=== PATIENT | female | born 1970 | race Two or more races ===

== ENCOUNTER → 2024-08-14 | Outpatient (CLI) | payer MEDICAID, SELFPAY ==
--- NOTE | 2024-08-14 12:00 | XR_ITS ---
Examination: Breast ultrasound, unilateral, left complete Date and time of exam: August 14, 2024 1220 hours INDICATIONS: Left breast sonogram September 23, 2022 3:00 nodule 6 mm Technique: Real-time gilbert scale ultrasonographic imaging performed left breast including all 4 quadrants as well as nipple retroareolar and axillary region. Findings: 3:00 cyst 9 x 6 mm 3:00 circumscribed nodule 6 x 7 mm IMPRESSION: BI-RADS Category 2: Benign findings
== END | disposition home or self-care (01) ==
PROVIDERS: PCP Physician Assistant; Referring Provider Physician Assistant; Visit Provider Physician Assistant
DX: R92.8 Other abnormal and inconclusive findings on diagnostic imaging of breast (principal); N60.02 Solitary cyst of left breast
CPT/HCPCS: 76641

== ENCOUNTER → 2024-08-16 | Outpatient (CLI) | payer MEDICAID, SELFPAY ==
--- NOTE | 2024-08-16 09:34 | XR_ITS ---
Examination: Diagnostic digital mammography, bilateral Computer aided detection 3-D breast Tomosynthesis, bilateral Date and time of exam: August 16, 2024 0938 hours INDICATIONS: Mammogram February 25, 2023 asymmetry outer left breast 6.7 cm from the nipple Technique: Nonmagnified MLO, CC views of the breasts to been obtained, reconstructed from 3-D Tomosynthesis images. R2 computer aided detection program utilized for evaluation of suspicious masses and/or abnormal calcifications. 3-D Tomosynthesis images obtained. Findings: The breasts are heterogeneously dense, which may obscure small masses 10 mm oval mass partially indistinct margins inner upper left breast Impression: BI-RADS Category 0: Incomplete: Need additional imaging evaluation 10 mm oval mass partially indistinct margins inner upper left breast, recommend follow-up spot tomographic views of this mass.
== END | disposition home or self-care (01) ==
PROVIDERS: Referring Provider Physician Assistant Medical; Visit Provider Physician Assistant Medical
DX: R92.8 Other abnormal and inconclusive findings on diagnostic imaging of breast (principal); N63.22 Unspecified lump in the left breast, upper inner quadrant
CPT/HCPCS: 77062; 77066; G0279

== ENCOUNTER → 2024-09-19 | Outpatient (CLI) | payer BC, MEDICAID, SELFPAY ==
--- NOTE | 2024-09-19 15:30 | XR_ITS ---
Examination: Diagnostic digital mammography, unilateral, left Computer aided detection 3-D breast Tomosynthesis, unilateral Date and time of exam: 09/19/2024, 3:51 PM Comparisons: February 2012 through August 16, 2024 Indications: Further evaluation of mass seen on recent screening exam. Technique: Nonmagnified MLO, CC views of the left breast have been obtained, reconstructed from 3-D Tomosynthesis images. R2 computer aided detection program utilized for evaluation of suspicious masses and/or abnormal calcifications. 3-D Tomosynthesis images obtained. Technologist: Findings: The breasts are heterogeneously dense, which may obscure small masses. No evidence of abnormal masses or suspicious calcifications. The previously described abnormality does not persist on spot compression views and represents superimposition of normal fibroglandular tissue. Impression: BI-RADS category 1: Negative findings (within normal) Recommend 1 year follow-up mammogram
== END | disposition home or self-care (01) ==
PROVIDERS: PCP Physician Assistant; Referring Provider Physician Assistant; Visit Provider Physician Assistant
DX: R92.312 Mammographic fatty tissue density, left breast (principal)
CPT/HCPCS: 77061; 77065; G0279

== ENCOUNTER → 2025-01-29 | Outpatient (CLI) | payer BC, MEDICAID, SELFPAY ==
--- NOTE | 2025-01-29 | XR_ITS ---
Examination: Abdomen sonogram, complete Date and time of exam: January 29, 2025 1209 hours INDICATIONS: Left lower abdominal pain beginning 2 months ago. Technique: Multiple real-time grayscale transabdominal sonographic images of the abdomen have been obtained. Findings: Normal gallbladder Normal common bile duct 0.3 cm Pancreatic head 2.4 cm Aorta not enlarged. Liver 16.3 cm fatty infiltration Normal hepatopedal portal venous flow Patent IVC Right kidney 11.9 cm cortex 1.3 cm Left kidney 11.1 cm renal cortex 1.8 cm Mild bilateral renal pedicle scar formation Spleen 9.1 cm IMPRESSION: Normal gallbladder Normal common bile duct Mild hepatomegaly
--- NOTE | 2025-01-29 | XR_ITS ---
Examination: Hand, left 3 views Technique: Hand AP, oblique, lateral 3 views Date and time of exam: January 29, 2025 1157 hours INDICATIONS: Left hand pain beginning 2 years ago FINDINGS: Prominent osteopenia Diffuse mild to moderate narrowing joints of the wrist and hand No erosive arthritis Significant osteoarthritis distal interphalangeal joints second through fifth digits and first carpometacarpal joint No fractures IMPRESSION: Arthritic change as above
== END | disposition home or self-care (01) ==
PROVIDERS: PCP Nurse Practitioner Family; Referring Provider Nurse Practitioner Family; Visit Provider Nurse Practitioner Family
DX: M13.842 Other specified arthritis, left hand (principal); R16.0 Hepatomegaly, not elsewhere classified
CPT/HCPCS: 73130; 76700

== ENCOUNTER → 2025-02-07 | Outpatient (CLI) | payer BC, MEDICAID, SELFPAY ==
--- NOTE | 2025-02-07 14:24 | XR_ITS ---
Examination: Lumbar spine 3 views TECHNIQUE: AP lateral coned lateral lower lumbar spine 3 views Date and time: February 07, 2025 1438 hours INDICATIONS: Left leg pain and back pain 3 months. FINDINGS: Satisfactory alignment lumbar vertebral bodies Number position of the first sacral segment No lumbar fracture Mild lumbar spondylosis Mild to moderate degenerative disc disease L5-S1 IMPRESSION: Mild to moderate degenerative disc disease L5-S1
== END | disposition home or self-care (01) ==
PROVIDERS: PCP Nurse Practitioner Family; Referring Provider Nurse Practitioner Family; Visit Provider Nurse Practitioner Family
DX: M51.379 Other intervertebral disc degeneration, lumbosacral region without mention of lumbar back pain or lower extremity pain (principal)
CPT/HCPCS: 72100

== ENCOUNTER → 2025-04-21 | Outpatient (CLI) | payer BC, MEDICAID, SELFPAY ==
--- NOTE | 2025-04-21 12:45 | XR_ITS ---
Examination: MRI lumbar spine without contrast Date and time of exam: April 21, 2025, 1335 hrs. Indications: Low back pain radiating to the left hip and leg 6 months Technique: Multiple MRI axial and sagittal sections lumbar spine. Sagittal T2-weighted images, TR 3500, TE 118 T1 weighted transverse sections, TR 688 T8.5, T2-weighted sagittal sections T1 weighted sagittal sections TR 621, TE 30 T2 axial sections, TR 4, 190, TE 84. Findings: Transitional S1 vertebral body No lumbar fracture Diffuse lumbar disc desiccation No spondylolisthesis L5-S1 3 mm central lumbar disc bulge L4-L5 no disc protrusion L3-L4 no disc protrusion L2-L3 no disc protrusion L1-L2 no disc protrusion Impression: L5-S1 3 mm central lumbar disc bulge
== END | disposition home or self-care (01) ==
PROVIDERS: PCP Nurse Practitioner Family; Referring Provider Nurse Practitioner Family; Visit Provider Nurse Practitioner Family
DX: M51.370 Other intervertebral disc degeneration, lumbosacral region with discogenic back pain only (principal)
CPT/HCPCS: 72148

== ENCOUNTER → 2025-05-14 | Outpatient (CLI) | payer MEDICAID, SELFPAY ==
--- NOTE | 2025-05-14 14:52 | XR_ITS ---
Examination: Transvaginal ultrasound of the pelvis, complete Technique: Transvaginal sonographic images pelvis performed using gilbert scale imaging Exam date and time: May 14, 2025, 1516 hours INDICATIONS: Pelvic pain lower abdominal pain beginning 3 months ago FINDINGS: Uterus 6.5 cm Multiple uterine areas of fibroid degeneration, the largest in the fundus 15 x 11 x 15 mm Endometrial stripe 0.5 cm Right ovary absent Left ovary 3.3 cm arterial flow IMPRESSION: Multiple small uterine areas of fibroid degeneration, the largest in the fundus of the uterus 15 x 11 x 15 mm.
--- NOTE | 2025-05-14 14:52 | XR_ITS ---
Examination: Pelvic ultrasound, transabdominal, complete Technique: Transabdominal ultrasound of the pelvis performed using grayscale imaging Date and time of exam: May 14, 2025, 1505 hours INDICATIONS: Worsening lower abdominal pain beginning 3 months ago. FINDINGS: Uterus 6.6 cm uterine fundal mass 21 x 20 mm Endometrial stripe 1.7 cm Absent right ovary Left ovary 2.5 cm arterial flow IMPRESSION: Uterine fundal mass 2.1 x 1.1 x 2.0 cm
== END | disposition home or self-care (01) ==
PROVIDERS: PCP Nurse Practitioner Family; Referring Provider Nurse Practitioner Family; Visit Provider Nurse Practitioner Family
DX: R19.00 Intra-abdominal and pelvic swelling, mass and lump, unspecified site (principal); D25.9 Leiomyoma of uterus, unspecified
CPT/HCPCS: 76830; 76856